=== PATIENT | female | born 1965 | race Caucasian/White ===

== ENCOUNTER 2019-02-27 20:20 | Emergency (ER) | payer BC, OTHER ==
[~2019-02-27] VITALS: Ht 167.6 cm; Wt 63.5 kg
--- OUTSIDE RECORDS SUMMARY | 2019-02-27 20:26 | XMS REPORT | Continuity of Care Document ---
Author Organization Unknown Address Unknown Allergies There is no data. Medications There is no data. Problems Date Dx Coded Attending Type Code Diagnosis Diagnosed By 05/22/2015 EZRA BOLDEN DPM Ot 726.72 05/22/2015 EZRA BOLDEN DPM Ot 726.79 Procedures There is no data. Results There is no data. Encounters ACCT No. Visit Date/Time Discharge Status Pt. Type Provider Facility Loc./Unit Complaint [id number] 04/26/2015 14:41:00 04/26/2015 23:59:59 CLS Outpatient EZRA BOLDEN DPM [facility] RAD
[2019-02-27] MEDS ORDERED: HYDROcodone/APAP 7.5 MG/325 MG (LORTAB, LORCET PLUS) TABLET PO ONE (20:45)
--- NOTE | 2019-02-27 21:17 | Diagnostic Imaging Report ---
INDICATION: Right shoulder pain. EXAMINATION: AP, oblique and transscapular views of the right shoulder were obtained. FINDINGS: No fracture or dislocation is seen. There is degenerative change of the AC joint. IMPRESSION: Degenerative change of the AC joint. No acute bony abnormality. Dictated by: Dictated on workstation # [id number]
--- NOTE | 2019-02-27 21:24 | ED Upper Extremity ---
General Chief Complaint: Upper Extremity Stated Complaint: PAIN IN RIGHT ARM AND EAR PAIN Nursing Triage Note: Pt complaining of right upper arm pain that started early this morning. Pt did not injure her arm and has no explanation for the pain. Pain only with movement , no pain to touch. Pt has taken advil at home for pain Nursing Sepsis Screen: No Definite Risk Source: patient Exam Limitations: no limitations History of Present Illness Date Seen by Provider: February 27, 2019 Time Seen by Provider: 20:45 Initial Comments 53-year-old female who presents to emergency room with complaints of right arm pain that started this morning. She is unsure as to what causing the arm pain but reports that she was shopping all day long and had her arm up in the air quite a bit. There is pain with range of motion. She is nontender on palpation. She reports taking Advil at home without relief. Onset: this morning Pain/Injury Location: right shoulder Method of Injury: unknown Modifying Factors: Worse With Movement Allergies and Home Medications Allergies Coded Allergies: No Known Drug Allergies (Unverified , 02/27/19) Home Medications Hydrocodone Bit/Acetaminophen 1 Tab Tab, 1 EACH PO Q4-6HR PRN for PAIN-MODERATE Prescribed by: ROGER POSEY on 02/27/19 2130 Patient Home Medication List Home Medication List Reviewed: Yes Review of Systems Constitutional: see HPI; No chills, No fever Musculoskeletal: see HPI, joint pain (right shoulder pain) All Other Systems Reviewed Negative Unless Noted: Yes Past Jhguhld-Kdtjul-Tlbpbj Hx Past Med/Social Hx: Reviewed Nursing Past Med/Soc Hx Patient Social History Alcohol Use: Rarely Uses Recreational Drug Use: No Smoking Status: Current Everyday Smoker Type Used: Cigarettes 2nd Hand Smoke Exposure: No Recent Foreign Travel: No Contact w/Someone Who Travel: No Recent Infectious Disease Expo: No Recent Hopitalizations: No Past Medical History Surgeries: No Respiratory: No Cardiac: No Neurological: No Genitourinary: No Gastrointestinal: No Musculoskeletal: No Endocrine: No HEENT: No Cancer: No Psychosocial: No Integumentary: No Blood Disorders: No Family Medical History Reviewed Nursing Family Hx Physical Exam Vital Signs Vital Signs - First Documented 02/27/19 20:25 Temp 98.3 Pulse 90 Resp 18 B/P (MAP) 116/67 (83) Pulse Ox 98 O2 Delivery Room Air Capillary Refill : Less Than 3 Seconds Height, Weight, BMI Height: 5'6.00" Weight: 140lbs. oz. 63.346897md; BMI Method:Stated General Appearance: WD/WN, no apparent distress Cardiovascular: normal peripheral pulses, regular rate, rhythm, no edema, no gallop, no JVD, no murmur Respiratory: chest non-tender, lungs clear, normal breath sounds, no respiratory distress, no accessory muscle use Shoulder: limited ROM (pain with range of motion of the right shoulder) Neurologic/Psychiatric: alert, normal mood/affect, oriented x 3 Skin: normal color, warm/dry Progress/Results/Core Measures Results/Orders My Orders Medications Given in ED Vital Signs/I&O Blood Pressure Mean: 83 Diagnostic Imaging Diagonstic Imaging: Xray Comments [facility], [place] NAME: CHAR PARSONS [facility] REC#: [id number] PT STATUS: REG ER : 1965 PHYSICIAN: ROGER POSEY ADMIT DATE: 02/27/19/ER Draft Date of Exam:02/27/19 SHOULDER, RIGHT, 3 VIEWS INDICATION: Right shoulder pain. EXAMINATION: AP, oblique and transscapular views of the right shoulder were obtained. FINDINGS: No fracture or dislocation is seen. There is degenerative change of the AC joint. IMPRESSION: Degenerative change of the AC joint. No acute bony abnormality. Dictated on workstation # [id number] Dict: 02/27/192114 Trans: 02/27/192116 [facility] [id number] Interpreted by: GAIL BARRETT MD Electronically signed by: Reviewed: Reviewed by Me Departure Impression Primary Impression: Right shoulder pain Disposition: 01 HOME, SELF-CARE Condition: Stable/Unchanged Departure-Patient Inst. Decision time for Depature: 21:29 Referrals: NOE MACIAS MD (PCP/Family) Primary Care Physician Patient Instructions: Shoulder Pain (DC) Add. Discharge Instructions: You may use ibuprofen and Tylenol as directed by the bottle for pain relief. For pain unrelieved by ibuprofen and Tylenol you may use the hydrocodone that was prescribed. Do not exceed your daily limit of Tylenol 4000 mg. Call tomorrow morning to schedule an appointment with Dr. Young or an orthopedic surgeon of your choosing. Return back to the emergency room for worsening symptoms or concerns as needed.. All discharge instructions reviewed with patient and/or family. Voiced understanding. Scripts Hydrocodone Bit/Acetaminophen (Hydrocodone/Acetaminophen 5/325mg Tablet) 1 Tab Tab 1 EACH PO Q4-6HR PRN for PAIN-MODERATE MDD 10 for 3 Days, #10 TAB Prov: ROGER POSEY 02/27/19 ROGER POSEY February 27, 2019 21:24
[2019-02-27] MEDS ORDERED: ACHD5005 PO (21:30)
[2019-02-27] MEDS ORDERED: RX-HYDROCODONE/APAP 5/325 MG #4 TAB PK PO PRN (21:45)
[2019-02-27 21:48] VITALS: BP 116/67
== END 2019-02-27 21:49 | disposition home or self-care (01) ==
LOC: EDUNIT# 20:20 → ER 20:23
DX: M25.511 Pain in right shoulder (principal); F17.210 Nicotine dependence, cigarettes, uncomplicated
CPT/HCPCS: 73030

== ENCOUNTER → 2019-03-02 | Outpatient (CLI) | payer BC ==
[~2019-03-02] MED LIST: ACHD5005 PO
--- NOTE | 2019-03-02 14:22 | Diagnostic Imaging Report ---
PROCEDURE: MRI right joint upper extremity without contrast. TECHNIQUE: Multiplanar, multisequence non contrast-enhanced MRI of the right upper extremity was accomplished. INDICATION: Severe right shoulder pain and decreased mobility. Adhesive capsulitis. COMPARISON: Radiographs from 02/27/2019. FINDINGS: No acute fracture or dislocation is seen in the right shoulder. There are moderate degenerative changes in the right acromioclavicular joint. No significant joint effusion is seen. The supraspinatus tendon demonstrates no high-grade partial-thickness or full-thickness tears. Likewise, the infraspinatus, subscapularis, and teres minor tendons appear intact. There is mild tendinosis of the subscapularis tendon. No muscular atrophy is seen. The long head of the biceps tendon appears normal in course and signal. The glenoid labrum is suboptimally evaluated in the absence of intra-articular contrast, although there does appear to be tearing of the superior posterior labrum. There is a prominent paralabral cyst at the superior posterior labrum measuring 1.3 x 0.9 cm in size on axial imaging and 1.3 cm craniocaudal. This lies within, but does not fill, the suprascapular and spinoglenoid notches. There is also a smaller cystic structure at the anterior superior labrum measuring 7 mm, which may represent a paralabral cyst as well, versus fluid in the superior subscapularis recess. The acromion has a slightly curved undersurface without hooking. The coracoclavicular and coracoacromial ligaments are intact. A small amount of fluid is seen in the subacromial subdeltoid bursa. The subcoracoid fat appears preserved. The inferior glenohumeral ligament does not appear thickened. No significant thickening or edema is seen about the coracohumeral ligament. IMPRESSION: 1. Tears of the right glenoid labrum, likely degenerative, with associated paralabral cyst. Once this approaches the spinoglenoid and suprascapular notches, there is no muscular atrophy. 2. Mild subacromial subdeltoid bursitis. 3. Moderate degenerative changes in the acromioclavicular joint. 4. No imaging findings suggestive of adhesive capsulitis. Dictated by: Dictated on workstation # [id number]
== END ==
LOC: RAD 12:07
PROVIDERS: ATTEND Orthopaedic Surgery
DX: S43.491A Other sprain of right shoulder joint, initial encounter (principal); S43.431A Superior glenoid labrum lesion of right shoulder, initial encounter; M19.011 Primary osteoarthritis, right shoulder; M75.51 Bursitis of right shoulder; M75.01 Adhesive capsulitis of right shoulder
CPT/HCPCS: 73221